=== PATIENT | female | born 1995 | race African-American/Black ===

== ENCOUNTER 2019-10-14 17:37 | Emergency (ER) | payer BC ==
[~2019-10-14] VITALS: Ht 165.1 cm; Wt 90.7 kg
[2019-10-14] MEDS ORDERED: MORPHINE SULFATE INJ 4 MG/ML INJ 1ML IV STA (18:07)
[2019-10-14] MEDS ORDERED: ONDANSETRON HCL INJ 2MG/ML 2ML 2 MG/ML VIAL IV STA (18:07)
--- NOTE | 2019-10-14 18:34 | Emergency Department Note ---
History of Present Illnes History of Present Illness Chief Complaint: Abdominal Complaints History of Present Illness This is a 24 year old female presents to ED with RLQ pain that started yesterday. Pt reports hx of a cyst, she believes possibly on ovaries. Pt denies . PT denies n/v/d, denies fever Pt states has been told she has an ovarian cyst and this pain is same as every other time she has had pain, states she has not yet followed up with gynecology as she has been instructed to do numerous times over the past couple of years. . Historian: Patient Arrival Mode: Car Onset (how long ago): day(s) (1) Location: rlq abd Quality: pain Radiation: Reports non-radiation Severity: moderate Onset quality: gradual Duration (how long): day(s) (1) Timing of current episode: constant Progression: worsening Chronicity: new Context: Denies recent illness, Denies recent surgery, Denies recent travel Relieving factors: none Exacerbating factors: movement Associated symptoms: Reports denies other symptoms Treatments prior to arrival: none Past Medical/Family History Physician Review I have reviewed the patient's past medical and family history. Any updates have been documented here. Past Medical History Recent Fever: No Clinical Suspicion of Infectio: No New/Unexplained Change in Ment: No Past Medical History: Diabetes Past Surgical History: None Social History Smoking Cessation: Never Smoker Alcohol Use: None Any Illegal Drug Use: No Physically hurt or threatened: No Family History Family history of heart diseas: No Other family history htn,dm Review of Systems Review of Systems Constitutional: Reports no symptoms EENTM: Reports no symptoms Cardiovascular: Reports no symptoms Respiratory: Reports no symptoms Gastrointestinal: Reports as per HPI Genitourinary: Reports no symptoms Musculoskeletal: Reports no symptoms Integumentary: Reports no symptoms Neurological: Reports no symptoms Psychological: Reports no symptoms Endocrine: Reports no symptoms Hematological/Lymphatic: Reports no symptoms Physical Exam Related Data Allergies: Coded Allergies: penicillin G (Verified Allergy, Unknown, 10/14/19) Triage Vital Signs Vital Signs Date Time Temp Pulse Resp B/P (MAP) Pulse Ox O2 Delivery O2 Flow Rate FiO2 10/14/19 17:47 98.1 98 18 150/102 100 Room Air Vital signs reviewed: Yes Physical Exam CONSTITUTIONAL Constitutional: Present well-developed, Present well-nourished, Present morbidly obese, Present distressed (mild) HENT HENT: Present normocephalic, Present atraumatic, Present oropharynx clear/moist, Present nose normal HENT L/R: Present left ext ear normal, Present right ext ear normal EYES Eyes: Reports PERRL, Reports conjunctivae normal NECK Neck: Present ROM normal PULMONARY Pulmonary: Present effort normal, Present breath sounds normal CARDIOVASCULAR Cardiovascular: Present regular rhythm, Present heart sounds normal, Present capillary refill normal, Present normal rate GASTROINTESTINAL Abdominal: Present soft, Present bowel sounds normal, Present tender (moderate rlq with mild rebound), Present rebound (mild rlq); Absent distension, Absent guarding, Absent mass, Absent left CVA tenderness, Absent right CVA tenderness GENITOURINARY Genitourinary: Present exam deferred SKIN Skin: Present warm, Present dry MUSCULOSKELETAL Musculoskeletal: Present ROM normal NEUROLOGICAL Neurological: Present alert, Present oriented x 3, Present no gross motor or sensory deficits PSYCHOLOGICAL Psychological: Present mood/affect normal, Present judgement normal Results Laboratory Laboratory Laboratory Tests Test 10/14/19 20:15 10/14/19 18:01 Urine Color Yellow (YELLOW) Urine Clarity Cloudy (CLEAR) Urine pH 5.5 (5 - 7) Urine Specific [place] >=1.030 (1.010-1.025) Urine Protein Negative (NEGATIVE) Urine Glucose (UA) 2+ (NEGATIVE) Urine Ketones Trace (NEGATIVE) Urine Blood Negative (NEGATIVE) Urine Nitrite Negative (NEGATIVE) Urine Bilirubin Negative (NEGATIVE) Urine Urobilinogen 0.2 mg/dL (0.2 - 1) Urine Leukocyte Esterase Negative (NEGATIVE) Urine RBC 11-20 /HPF (0-5) Urine WBC 11-20 /HPF (0-5) Urine Epithelial Cells Few /LPF (NONE) Urine Bacteria Many /HPF (NONE) Urine Yeast Many (NONE) Urine Test Negative (NEGATIVE) White Blood Count 10.27 x10e3/uL (4.8-10.8) Red Blood Count 4.94 x10e6/uL (3.6-5.1) Hemoglobin 12.3 g/dL (12.0-16.0) Hematocrit 40.0 % (34.2-44.1) Mean Corpuscular Volume 81.0 fL (81-99) Mean Corpuscular Hemoglobin 24.9 pg (28-32) Mean Corpuscular Hemoglobin Concent 30.8 g/dL (31-35) Red Cell Distribution Width 13.7 % (11.7-14.4) Platelet Count 366 x10e3/uL (140-360) Neutrophils (%) (Auto) 65.9 % (38.7-80.0) Lymphocytes (%) (Auto) 27.0 % (18.0-39.1) Monocytes (%) (Auto) 5.0 % (4.4-11.3) Eosinophils (%) (Auto) 0.5 % (0.0-6.0) Basophils (%) (Auto) 0.3 % (0.0-1.0) Neutrophils # (Auto) 6.8 (2.1-6.9) Lymphocytes # (Auto) 2.8 (1.0-3.2) Monocytes # (Auto) 0.5 (0.2-0.8) Eosinophils # (Auto) 0.1 (0.0-0.4) Basophils # (Auto) 0.0 (0.0-0.1) Absolute Immature Granulocyte (auto 0.13 x10e3/uL (0-0.1) Prothrombin Time 12.5 seconds (11.9-14.5) Prothromb Time International Ratio 0.89 Activated Partial Thromboplast Time 27.9 seconds (23.8-35.5) Sodium Level 135 mmol/L (136-145) Potassium Level 3.8 mmol/L (3.5-5.1) Chloride Level 100 mmol/L (98-107) Carbon Dioxide Level 20 mmol/L (22-29) Anion Gap 18.8 mmol/L (8-16) Blood Urea Nitrogen 8 mg/dL (7-26) Creatinine 0.84 mg/dL (0.57-1.11) Estimat Glomerular Filtration Rate > 60 ML/MIN (60-) BUN/Creatinine Ratio 10 (6-25) Glucose Level 309 mg/dL (74-118) Calcium Level 9.2 mg/dL (8.4-10.2) Lab results reviewed: Yes Imaging Imaging results reviewed: Yes Impressions Procedure: [id number] US/US PELVIS COMPLETE NON OB Exam Date: 10/14/19 Exam Time: 1918 REPORT STATUS: Signed EXAM: Transabdominal and Transvaginal Pelvic Ultrasound INDICATION: ^eval for R ovarian torsion ^[id number] ^1918 COMPARISON: None TECHNIQUE: Grayscale transverse and sagittal transabdominal and transvaginal images were obtained of the pelvis. Transvaginal imaging was medically necessary to better evaluate the endometrium and the adnexa. FINDINGS: Uterus Orientation: Normal Size: 7 x 3.4 x 5.9 cm, Normal Mass: None Cervix: Normal Endometrium: Thickness: 1 cm, Normal. Appearance: Homogeneous echotexture without focal thickening. Right ovary: Size: 12.2 x 7.3 x 8.2 cm Mass/Cyst: 4.7 x 4.9 x 5.2 cm and 7.2 x 7 x 7.8 cm cysts. Arterial and venous flow detected on filling peripheral ovarian tissue. Left ovary: Not visualized. Adnexa: Normal Cul-de-sac: Small amount of free fluid IMPRESSION: Enlarged right ovary, replaced by 2 cysts, measuring up to 7.8 cm. Vascular flow detected in the peripheral thin ovarian tissue, low likelihood of ovarian torsion. However due to the large size of the cysts, the right ovary is at risk for torsion and surgical consultation should be considered. Left ovary is not visualized, limiting evaluation. Signed by: Dr. Olayinka Suarez MD on 10/14/2019 8:38 PM Dictated By: OLAYINKA SUAREZ MD 37 Transcribed By: KHALIDA on 10/14/192037 COPY TO: ANN MARIE SONG MD~ Procedure: [id number] CT/CT ABDOMEN/PELVIS W Exam Date: 10/14/19 Exam Time: 2109 REPORT STATUS: Signed EXAM: CT Abdomen and Pelvis WITH contrast INDICATION: ^rlq pain ^[id number] ^2109 ^Y COMPARISON: Same day pelvic ultrasound. TECHNIQUE: Abdomen and pelvis were scanned utilizing a multidetector helical scanner from the lung base to the pubic symphysis after administration of IV contrast. Coronal and sagittal reformations were obtained. Dose modulation, iterative reconstruction, and/or weight based adjustment of the mA/kV was utilized to reduce the radiation dose to as low as reasonably achievable. Routine protocol was performed. Scan was performed when during portal venous phase. IV CONTRAST: 100 mL of Isovue-370 ORAL CONTRAST: None COMPLICATIONS: None RADIATION DOSE: Total DLP: 847.36 mGy*cm Estimated effective dose: (DLP x 0.015 x size factor) mSv CTDIvol has been reviewed. It is below the limits set by the Radiation Protocol Committee (RPC). FINDINGS: LINES and TUBES: None. LOWER THORAX: Unremarkable HEPATOBILIARY: Hepatic steatosis and hepatomegaly. No focal hepatic lesions. No biliary ductal dilation. GALLBLADDER: No radio-opaque stones or sludge. No wall thickening. SPLEEN: No splenomegaly. PANCREAS: No focal masses or ductal dilatation. ADRENALS: No adrenal nodules KIDNEYS/URETERS: Atrophic right kidney with multifocal scarring. Complex 1.3 cm right renal midpole cyst. Kidneys enhance symmetrically. No hydronephrosis. No renal mass. No stones. GI TRACT: No abnormal distention, wall thickening, or evidence of bowel obstruction. Appendix is normal. PELVIC ORGANS/BLADDER: Right ovarian cysts are again seen, measuring up to 8.8 cm on current exam. Otherwise, unremarkable. LYMPH NODES: No lymphadenopathy. VESSELS: Unremarkable. PERITONEUM / RETROPERITONEUM: No free air or fluid. BONES: Unremarkable. SOFT TISSUES: Unremarkable. IMPRESSION: 1. No acute inflammatory process in the abdomen/pelvis. 2. Enlarged steatotic liver. 3. Atrophic right kidney with multifocal areas of cortical scarring. 4. Redemonstration of large right ovarian cysts. As noted on the same day pelvic ultrasound, patient is at risk for right ovarian torsion. Signed by: Dr. Olayinka Suarez MD on 10/14/2019 9:40 PM Dictated By: OLAYINKA SUAREZ MD 39 Transcribed By: KHALIDA on 10/14/192139 COPY TO: ANN MARIE SONG MD~ Assessment & Plan Medical Decision Making MDM pt with rlq abd pain for 1 day cbc, bmp, ua, preg test, pelvic u/s, ct abd/pelvis ordered to eval for uti, appendicitis, ovarian cyst, ovarian torsion, leukocytosis, electrolyte abnormality morphine 4 mg iv ordered zofran 4 mg iv ordered ns 1 liter iv ordered Assessment & Plan Final Impression: (1) UTI (urinary tract infection) (2) Ovarian cyst Depart Disposition: HOME, SELF-CARE Last Vital Signs Date Time Temp Pulse Resp B/P (MAP) Pulse Ox O2 Delivery O2 Flow Rate FiO2 10/14/19 17:47 98.1 98 18 150/102 100 Room Air Medications in the ED Morphine Sulfate 4 mg NOW STAT IV ; Start 10/14/19 at 18:07; Stop 10/14/19 at 18:13; Status DC Ondansetron HCl 4 mg NOW STAT IV ; Start 10/14/19 at 18:07; Stop 10/14/19 at 18:13; Status DC ANN MARIE SONG MD Oct 14, 2019 18:34
[2019-10-14 19:06] LABS: BASOPHILS % 0.3 % (0.0-1.0); EOSINOPHILS # (AUTO) 0.1 (0.0-0.4); EOSINOPHILS % 0.5 % (0.0-6.0); HEMOGLOBIN 12.3 g/dL (12.0-16.0); LYMPHOCYTES # (AUTO) 2.8 (1.0-3.2); MEAN CORPUSCULAR HEMOGLOBIN 24.9 pg (28-32); MEAN CORPUSCULAR HGB CONC 30.8 g/dL (31-35); MONOCYTES # (AUTO) 0.5 (0.2-0.8); NEUTROPHILS # (AUTO) 6.8 (2.1-6.9); NEUTROPHILS % 65.9 % (38.7-80.0); PLATELET COUNT 366 x10e3/uL (140-360); RED BLOOD COUNT 4.94 x10e6/uL (3.6-5.1); RED CELL DISTRIBUTION WIDTH 13.7 % (11.7-14.4)
[2019-10-14 19:17] LABS: INR 0.89; PARTIAL THROMBOPLASTIN TIME 27.9 seconds (23.8-35.5); PROTHROMBIN TIME 12.5 seconds (11.9-14.5)
[2019-10-14 19:21] LABS: ANION GAP 18.8 mmol/L (8-16); BLOOD UREA NITROGEN 8 mg/dL (7-26); BUN/CREATININE RATIO 10 (6-25); CALCIUM 9.2 mg/dL (8.4-10.2); CARBON DIOXIDE 20 mmol/L (22-29); CHLORIDE 100 mmol/L (98-107); CREATININE, SERUM 0.84 mg/dL (0.57-1.11); EST GLOMERULAR FILTRATION RATE > 60 ML/MIN (60-); GLUCOSE 309 mg/dL (74-118); POTASSIUM 3.8 mmol/L (3.5-5.1); SODIUM 135 mmol/L (136-145)
[2019-10-14 20:30] LABS: PREGNANCY TEST, URINE NEGATIVE (NEGATIVE)
[2019-10-14 20:35] LABS: BILIRUBIN,URINE NEGATIVE (NEGATIVE); CLARITY,URINE CLOUDY (CLEAR); COLOR,URINE YELLOW (YELLOW); KETONES,URINE TRACE (NEGATIVE); LEUKOCYTE ESTERASE ,URINE NEGATIVE (NEGATIVE); NITRITE,URINE NEGATIVE (NEGATIVE); PROTEIN,URINE DIPSTICK NEGATIVE (NEGATIVE); URINE UROBILINOGEN 0.2 mg/dL (0.2 - 1)
--- NOTE | 2019-10-14 20:41 | Diagnostic Imaging Report ---
EXAM: Transabdominal and Transvaginal Pelvic Ultrasound INDICATION: ^eval for R ovarian torsion ^[id number] ^1918 COMPARISON: None TECHNIQUE: Grayscale transverse and sagittal transabdominal and transvaginal images were obtained of the pelvis. Transvaginal imaging was medically necessary to better evaluate the endometrium and the adnexa. FINDINGS: Uterus Orientation: Normal Size: 7 x 3.4 x 5.9 cm, Normal Mass: None Cervix: Normal Endometrium: Thickness: 1 cm, Normal. Appearance: Homogeneous echotexture without focal thickening. Right ovary: Size: 12.2 x 7.3 x 8.2 cm Mass/Cyst: 4.7 x 4.9 x 5.2 cm and 7.2 x 7 x 7.8 cm cysts. Arterial and venous flow detected on filling peripheral ovarian tissue. Left ovary: Not visualized. Adnexa: Normal Cul-de-sac: Small amount of free fluid IMPRESSION: Enlarged right ovary, replaced by 2 cysts, measuring up to 7.8 cm. Vascular flow detected in the peripheral thin ovarian tissue, low likelihood of ovarian torsion. However due to the large size of the cysts, the right ovary is at risk for torsion and surgical consultation should be considered. Left ovary is not visualized, limiting evaluation. Signed by: Dr. Olayinka Suarez MD on 10/14/2019 8:38 PM
[2019-10-14 20:46] LABS: BACTERIA,URINE MANY /HPF; EPITHELIAL CELLS,URINE FEW /LPF; YEAST,URINE MANY
[2019-10-14] MEDS ORDERED: KETOROLAC TROMETHAMINE 30 MG/ML VIAL IV STA (20:49)
[2019-10-14] MEDS ORDERED: KETOROLAC TROMETHAMINE 30 MG/ML VIAL ONE (20:58)
[2019-10-14] MEDS ORDERED: SODIUM CHLORIDE 0.9% 50ML 50 ML ONE (21:11)
[2019-10-14] MEDS ORDERED: IOPAMIDOL 370 MG/ML 200 ML INFUS..BTL INJ ONE (21:11)
--- NOTE | 2019-10-14 21:43 | Diagnostic Imaging Report ---
EXAM: CT Abdomen and Pelvis WITH contrast INDICATION: ^rlq pain ^[id number] ^2109 ^Y COMPARISON: Same day pelvic ultrasound. TECHNIQUE: Abdomen and pelvis were scanned utilizing a multidetector helical scanner from the lung base to the pubic symphysis after administration of IV contrast. Coronal and sagittal reformations were obtained. Dose modulation, iterative reconstruction, and/or weight based adjustment of the mA/kV was utilized to reduce the radiation dose to as low as reasonably achievable. Routine protocol was performed. Scan was performed when during portal venous phase. IV CONTRAST: 100 mL of Isovue-370 ORAL CONTRAST: None COMPLICATIONS: None RADIATION DOSE: Total DLP: 847.36 mGy*cm Estimated effective dose: (DLP x 0.015 x size factor) mSv CTDIvol has been reviewed. It is below the limits set by the Radiation Protocol Committee (RPC). FINDINGS: LINES and TUBES: None. LOWER THORAX: Unremarkable HEPATOBILIARY: Hepatic steatosis and hepatomegaly. No focal hepatic lesions. No biliary ductal dilation. GALLBLADDER: No radio-opaque stones or sludge. No wall thickening. SPLEEN: No splenomegaly. PANCREAS: No focal masses or ductal dilatation. ADRENALS: No adrenal nodules KIDNEYS/URETERS: Atrophic right kidney with multifocal scarring. Complex 1.3 cm right renal midpole cyst. Kidneys enhance symmetrically. No hydronephrosis. No renal mass. No stones. GI TRACT: No abnormal distention, wall thickening, or evidence of bowel obstruction. Appendix is normal. PELVIC ORGANS/BLADDER: Right ovarian cysts are again seen, measuring up to 8.8 cm on current exam. Otherwise, unremarkable. LYMPH NODES: No lymphadenopathy. VESSELS: Unremarkable. PERITONEUM / RETROPERITONEUM: No free air or fluid. BONES: Unremarkable. SOFT TISSUES: Unremarkable. IMPRESSION: 1. No acute inflammatory process in the abdomen/pelvis. 2. Enlarged steatotic liver. 3. Atrophic right kidney with multifocal areas of cortical scarring. 4. Redemonstration of large right ovarian cysts. As noted on the same day pelvic ultrasound, patient is at risk for right ovarian torsion. Signed by: Dr. Olayinka Suarez MD on 10/14/2019 9:40 PM
[2019-10-14 22:02] VITALS: BP 130/86
== END 2019-10-14 22:13 | disposition home or self-care (01) ==
LOC: ER 18:03
DX: R10.31 Right lower quadrant pain (principal); N39.0 Urinary tract infection, site not specified; N83.201 Unspecified ovarian cyst, right side; E11.9 Type 2 diabetes mellitus without complications; R16.0 Hepatomegaly, not elsewhere classified
CPT/HCPCS: 36415; 74177; 76830; 76856; 80048; 81001; 81025; 85025; 85610; 85730; 93976; 99284; J1885; J2270; J2405; Q9967